=== PATIENT | female | born 1965 | race Two or more races ===

== ENCOUNTER → 2024-10-02 | Outpatient (CLI) | payer MEDICAID, SELFPAY ==
--- NOTE | 2024-10-02 14:20 | XR_ITS ---
Examination: Thoracic spine 3 views Technique one AP lateral coned lateral upper dorsal spine 3 views Date and time: 06/04/2024 1426 hours INDICATIONS: Back pain one month FINDINGS: Prominent osteopenia Thoracic dextroscoliosis 12 degrees No thoracic fracture No significant thoracic disc narrowing IMPRESSION: Thoracic dextroscoliosis 12 degrees
== END | disposition home or self-care (01) ==
PROVIDERS: PCP Obstetrics & Gynecology; Referring Provider Obstetrics & Gynecology; Visit Provider Obstetrics & Gynecology
DX: M41.9 Scoliosis, unspecified (principal); M85.88 Other specified disorders of bone density and structure, other site
CPT/HCPCS: 72070